=== PATIENT | male | born 1990 | race Caucasian/White ===

== ENCOUNTER 2018-05-02 10:06 | Emergency (ER) | payer BC ==
[~2018-05-02] VITALS: Ht 175.3 cm; Wt 75.0 kg
[2018-05-02 10:13] VITALS: Ht 175.3 cm; Wt 75.0 kg
[2018-05-02] MEDS ORDERED: CLEOCIN HCL300 MG PO (10:56)
[2018-05-02] MEDS ORDERED: TYLENOL W/CODEI1 TAB PO (10:56)
[2018-05-02 11:09] VITALS: BP 112/56
== END 2018-05-02 11:28 | disposition home or self-care (01) ==
LOC: D.ER 10:06
DX: K04.7 Periapical abscess without sinus (principal); F17.200 Nicotine dependence, unspecified, uncomplicated; R51 Headache